=== PATIENT | female | born 1980 | race Caucasian/White ===

== ENCOUNTER 2021-07-05 00:05 | Inpatient (IN) ==
[2021-07-05 00:56] LABS: Amphetamine Screen,Urine Negative ng/mL (Cutoff=1000); Barbiturate Screen,Urine Negative ng/mL (Cutoff=200); Benzodiazepines Screen,Urine Negative ng/mL (Cutoff=200); Cannabinoid Screen,Urine Negative ng/mL (Cutoff = 50); Cocaine Screen,Urine Negative ng/mL (Cutoff= 300); Opiate Screen,Urine Negative ng/mL (Cutoff=300); Phencyclidine Screen,Urine Negative ng/mL (Cutoff=25)
[2021-07-05 02:21] LABS: Influenza A PCR Negative (Negative); Influenza B PCR Negative (Negative); Resp. Syncytial Virus PCR Negative (Negative)
[2021-07-05 02:24] LABS: SARS-CoV-2 by PCR (In House) Negative (Negative)
[2021-07-05] MEDS ORDERED: Ibuprofen 400 MG TABLET PO PRN (02:44)
[2021-07-05] MEDS ORDERED: *HR* LORazepam 1 MG TABLET PO PRN (02:44)
[2021-07-05] MEDS ORDERED: *HR* LORazepam 2 MG/ML VIAL IM PRN (02:44)
[2021-07-05] MEDS ORDERED: Haloperidol Lactate 5 MG/ML VIAL IM PRN (02:44)
[2021-07-05] MEDS ORDERED: haloperidoL 5 MG TABLET PO PRN (02:44)
[2021-07-05] MEDS: hydrOXYzine pamoate 25 MG CAPSULE PO PRN ×2 (03:31→20:48)
[2021-07-05] MEDS: RisperiDONE-M 1 MG TAB.RAPDIS PO SCH ×2 (12:49→20:48)
[2021-07-06] MEDS: RisperiDONE-M 1 MG TAB.RAPDIS PO SCH ×2 (10:48→20:26)
[2021-07-07] MEDS: RisperiDONE-M 1 MG TAB.RAPDIS PO SCH ×2 (09:16→20:31)
[2021-07-08] MEDS: RisperiDONE-M 1 MG TAB.RAPDIS PO SCH ×2 (09:52→20:46)
[2021-07-08] MEDS ORDERED: Paliperidone Palmitate 234 MG/1.5 ML SYRINGE IM ONE (12:30)
[2021-07-09] MEDS: RisperiDONE-M 1 MG TAB.RAPDIS PO SCH (10:19)
[2021-07-11] MEDS: traZODone 50 MG TABLET PO PRN (21:35)
[2021-07-11] MEDS: hydrOXYzine pamoate 25 MG CAPSULE PO PRN (21:35)
[2021-07-12] MEDS ORDERED: Paliperidone Palmitate 156 MG/ML SYRINGE IM SCH (12:00)
[2021-07-12] MEDS: traZODone 50 MG TABLET PO PRN (20:48)
[2021-07-12] MEDS: hydrOXYzine pamoate 25 MG CAPSULE PO PRN (20:48)
[2021-07-13] MEDS: traZODone 50 MG TABLET PO PRN (21:03)
[2021-07-13] MEDS: hydrOXYzine pamoate 25 MG CAPSULE PO PRN (21:03)
[2021-07-14] MEDS: traZODone 50 MG TABLET PO PRN (21:08)
[2021-07-14] MEDS: hydrOXYzine pamoate 25 MG CAPSULE PO PRN (21:08)
[2021-07-15] MEDS: traZODone 50 MG TABLET PO PRN (21:37)
[2021-07-15] MEDS: hydrOXYzine pamoate 25 MG CAPSULE PO PRN (21:37)
[2021-07-16] MEDS: traZODone 50 MG TABLET PO PRN (20:51)
[2021-07-16] MEDS: hydrOXYzine pamoate 25 MG CAPSULE PO PRN (20:51)
[2021-07-17] MEDS: traZODone 50 MG TABLET PO PRN (21:28)
[2021-07-17] MEDS: hydrOXYzine pamoate 25 MG CAPSULE PO PRN (21:28)
[2021-07-18] MEDS: hydrOXYzine pamoate 25 MG CAPSULE PO PRN (20:26)
[2021-07-18] MEDS: traZODone 50 MG TABLET PO PRN (20:26)
[2021-07-19] MEDS: traZODone 50 MG TABLET PO PRN (20:31)
[2021-07-19] MEDS: hydrOXYzine pamoate 25 MG CAPSULE PO PRN (20:31)
[2021-07-20] MEDS: hydrOXYzine pamoate 25 MG CAPSULE PO PRN (22:15)
[2021-07-20] MEDS: traZODone 50 MG TABLET PO PRN (22:15)
[2021-07-21] MEDS: hydrOXYzine pamoate 25 MG CAPSULE PO PRN ×2 (12:33→20:53)
[2021-07-21] MEDS: traZODone 50 MG TABLET PO PRN (20:53)
[2021-07-22 11:37] VITALS: BP 103/65; PULSE 84; TEMP 98.1; O2SAT 95
== END 2021-07-22 12:45 | disposition home or self-care (01) | DRG 750 ==
LOC: EMEROOARM 00:05 → 1ANU 02:35 → INTOOBSV 02:35 → 1ANU 03:18
PROVIDERS: ADMIT Psychiatry & Neurology Psychiatry; ATTEND Psychiatry & Neurology Psychiatry